=== PATIENT | male | born 1965 | race Caucasian/White ===

== ENCOUNTER 2016-05-30 11:39 | Emergency (ER) | payer BC ==
[~2016-05-30 11:39] MED LIST: ASPIRIN PO; ASPIRIN81 M2 PO; BACTRIM DS TABL1 TA1 PO; COLESTID1 GM PO; EXFORGE 10-3201 TAB PO; EXFORGE 10/320; IMDUR30 MG PO; KEFLEX500 M1 PO; METFORMIN HCL500 M1 PO; METFORMIN PO; METOPROLOL SUCC50 MG PO; NIASPAN1000 MG PO; NITROGLYGERIN0.4 MG SL; OMEPRAZOLE40 M1 PO; TOPROL XL PO; ZESTORETIC 20-1 EAC1 PO
== END 2016-05-30 11:40 | disposition home or self-care (01) ==
LOC: SED 11:39
DX: K61.1 Rectal abscess (principal); I10 Essential (primary) hypertension; E11.9 Type 2 diabetes mellitus without complications; Z90.49 Acquired absence of other specified parts of digestive tract; Z79.899 Other long term (current) drug therapy; Z79.84 Long term (current) use of oral hypoglycemic drugs; Z79.82 Long term (current) use of aspirin
CPT/HCPCS: 99282

== ENCOUNTER 2016-06-10 08:19 | Emergency (ER) | payer BC | END 2016-06-10 08:34 | disposition home or self-care (01) | LOC: CED 08:19 | DX: L02.31 Cutaneous abscess of buttock (principal); E11.9 Type 2 diabetes mellitus without complications; I10 Essential (primary) hypertension; Z79.899 Other long term (current) drug therapy | CPT/HCPCS: 99282 ==

== ENCOUNTER 2016-06-18 07:19 | Observation (INO) | payer BC ==
--- NOTE | ~2016-06-18 | OR ---
Unit #: [id number] #: [id number] Patient: GOPAL WRIGHT [id number] [address] [place], [place] [address] [id number] MR#: [id number] NAME: GOPAL WRIGHT. ROOM: 467 Date of Procedure: 06/18/2016 Admission Date: 06/18/2016 Surgeon: Julio C Estrada M.D. : 1965 Attending Physician: Julio C Estrada M.D. Primary Care Physician: Shady Valle M.D. OPERATIVE REPORT PREOPERATIVE DIAGNOSIS Necrotic abscess, left buttock. POSTOPERATIVE DIAGNOSIS Necrotic abscess, left buttock. PROCEDURE PERFORMED Incision and drainage of necrotic abscess, left buttock with sharp excisional debridement of skin and subcutaneous tissue, 4 x 4 cm area. ANESTHESIA General LMA anesthesia with 0.5% Marcaine plain local anesthesia. FINDINGS The patient was found to have a large abscess cavity that extended down the left buttock, but also across to the midline and posterior to the rectum. SPECIMENS Sent to microbiology. COMPLICATIONS None apparent. CONDITION The patient tolerated the procedure well. INDICATIONS FOR PROCEDURE The patient is a 51-year-old white male who developed a necrotic abscess over the last 1 to 2 weeks. He presents at this time for incision, drainage, and debridement. DESCRIPTION OF PROCEDURE After obtaining informed consent as well as receiving preoperative antibiotics, the patient was brought to the operating room and after adequate general LMA anesthesia was obtained, he was very carefully placed into the left lateral decubitus position with an axillary roll and all pressure points carefully padded and all extremities manipulated very carefully. His intergluteal crease and perineum were prepped and draped in a sterile fashion. A hemostat was first probed the direction of the abscess cavity. This was then split opened in the direction. It extended from the left buttock area inferiorly along the left buttock, but also Unit #: [id number] #: [id number] Patient: GOPAL WRIGHT across to the midline posterior to the rectum. This was opened up in either direction with the scalpel and electrocautery with good hemostasis. Sharp excisional debridement of necrotic skin and subcutaneous tissue was performed in a 4 x 4 cm area. Hemostasis was obtained with the Bovie. All loculations were broken up. The wound was copiously irrigated. All areas were infiltrated with 0.5% Marcaine plain local anesthesia, then packed with a 1-inch Bharathi. A dry dressing was applied followed by tape. At this point in time, digital examination of the rectum was performed. There was no palpable abnormality and there was no evidence of communication. The patient went from the operating room to recovery room in stable condition. Needle counts, sponge counts, and instrument counts were all correct as reported by the scrub nurse x2. Dictated by... Julio C Estrada M.D. LENNY/harlan TD: 06/18/2016 12:54 JOB #: [id number] CC: [facility] Michael Rico M.D. OPERATIVE REPORT Page 1 of 1 X Julio C Estrada MD X PROCEDURE OPERATIVE NOTE
--- NOTE | ~2016-06-18 | BMI ---
[facility] Nutrition Therapy DATE: 06/19/16 Patient: GOPAL WRIGHT Physician: BARTOLOME Address: [address] [place] [address] Room/Bed: [address] [place] [address], Zip: [place] [id number] Admit Date: 06/18/16 Date of : [birth year] Height: 5 7 Weight: 320 145.6 HIGH BMI NOTE: DX: 51 Y.O. MALE ADMITTED FOR ABSCESS ANTHROPOMETRICS: 5'7", WT: 320# (145 KG), BMI: 50.1 DIET: REGULAR INTERVENTION: 1. REGULAR DIET RECOMMENDATIONS: 1. RECOMMEND TO CHANGE CURRENT DIET ORDER TO CC/HH TO PROMOTE GRADUAL WEIGHT LOSS TOWARDS HEALTHY BMI (19.0-25.0) OR +/-10%IBW RD WILL F/U PER PROTOCOL Respectfully, TEREZA PRICE MS, RD, LD [facility] cc: client file
--- NOTE | ~2016-06-18 | EKG ---
PATIENT: GOPAL WRIGHT UNIT #: [id number] Ventricular Rate: 71 BPM Atrial Rate: 71 BPM QRS Duration: 76 ms Q-T Interval: 366 ms QTC Calculation(Bezet): 397 ms Calculated R [place]: 33 degrees Calculated T [place]: 36 degrees Diagnosis Line: Normal sinus rhythm Diagnosis Line: Normal ECG Diagnosis Line: When compared with ECG of 06-JUN-2011 06:21, Diagnosis Line: No significant change was found Diagnosis Line: Confirmed by AMITA GUPTA MD ([id number]) on 06/18/2016 Diagnosis Line: 10:40:17 PM INTERPRETING MD: ALONSO WHARTON
[2016-06-18 08:39] LABS: BUN/CREATININE RATIO 20.76; CALCIUM SERUM 9.2 mg/dL (8.4-10.2); CREATININE SERUM 1.3 mg/dL (0.6-1.4); GLOM FILT RATE Estimated 62.3 mL/min (>60); POTASSIUM 4.6 mmol/L (3.5-5.1)
[2016-06-19 07:01] LABS: BUN/CREATININE RATIO 16.66; CALCIUM SERUM 8.6 mg/dL (8.4-10.2); CREATININE SERUM 0.9 mg/dL (0.6-1.4); GLOM FILT RATE Estimated 97.2 mL/min (>60); POTASSIUM 4.4 mmol/L (3.5-5.1)
[2016-06-19] MEDS ORDERED: LORTAB 10-3251 EACH PO (11:36)
[2016-06-19] MEDS ORDERED: LEVAQUIN PO (11:37)
[2016-06-19] MEDS ORDERED: DAKIN'S473 M2 (11:40)
== END 2016-06-19 12:30 | disposition home or self-care (01) | DRG 603 ==
LOC: CSUR 07:19 → CPACUOF 11:30 → C4C 12:50
PROVIDERS: Surgery
DX: L02.31 Cutaneous abscess of buttock (principal); E11.9 Type 2 diabetes mellitus without complications; Z79.84 Long term (current) use of oral hypoglycemic drugs; E78.5 Hyperlipidemia, unspecified; I10 Essential (primary) hypertension; E66.01 Morbid (severe) obesity due to excess calories; Z79.82 Long term (current) use of aspirin; N40.0 Benign prostatic hyperplasia without lower urinary tract symptoms; Z86.010 Personal history of colon polyps
CPT/HCPCS: 80048; 82947; 87070; 87075; 87205; 93005; 94760; 96374; 96375; 96376; G0378; J1644; J1650; J2250; J2270; J2405; J2543; J3010; J3370